=== PATIENT | male | born 1980 | race Asian ===

== ENCOUNTER 2024-06-09 22:45 | Emergency (ER) | payer MEDICAID, OTHER | END 2024-06-10 01:15 | disposition left against medical advice (07) | LOC: ER 22:57 | DX: R00.2 Palpitations (principal); Z53.21 Procedure and treatment not carried out due to patient leaving prior to being seen by health care provider ==

== ENCOUNTER 2025-01-31 14:54 | Emergency (ER) | payer OTHER ==
[~2025-01-31] VITALS: Ht 175.3 cm; Wt 78.9 kg
[2025-01-31 15:20] VITALS: TEMP 98.5
[2025-01-31 15:40] VITALS: BP 154/96; O2SAT 98
== END 2025-01-31 15:40 | disposition home or self-care (01) ==
LOC: ER 14:58
DX: R00.2 Palpitations (principal); F41.9 Anxiety disorder, unspecified